=== PATIENT | female | born 2000 ===

== ENCOUNTER 2021-07-28 10:44 | Inpatient (IN) | payer OTHER ==
[2021-07-28] MEDS ORDERED: LIDOCAINE (2%) 20 MG/1 ML VIAL 20 ML MDV INFILTRATI ONE (11:13)
[2021-07-28] MEDS ORDERED: miSOPROStol 200 MCG TAB PR PRN (11:13)
[2021-07-28] MEDS ORDERED: ACETAMINOPHEN 325 MG TAB PO PRN (11:13)
[2021-07-28] MEDS ORDERED: AMPICILLIN/NS 2 GM/100 ML 2 GM/100 ML BAG IV ONE (11:13)
[2021-07-28] MEDS ORDERED: OXYTOCIN 10 UNIT/1 ML INJ IM PRN (11:13)
[2021-07-28] MEDS ORDERED: BUTORPHANOL 2 MG/1 ML INJ IV PRN (11:13)
[2021-07-28] MEDS ORDERED: LOPERAMIDE 2 MG CAP PO PRN (11:13)
[2021-07-28] MEDS ORDERED: fentaNYL 100 MCG/2 ML INJ IV PRN (11:13)
[2021-07-28] MEDS ORDERED: CARBOPROST TROMETHAMINE 250 MCG/1 ML INJ IM PRN (11:13)
[2021-07-28] MEDS ORDERED: MINERAL OIL 30 ML ORAL LIQD PO PRN (11:13)
[2021-07-28] MEDS ORDERED: METHYLERGONOVINE MALEATE 0.2 MG/ML VIAL IM PRN (11:13)
[2021-07-28] MEDS ORDERED: TERBUTALINE 1 MG/1 ML INJ SUB-Q PRN (11:13)
[2021-07-28] MEDS ORDERED: ePHEDrine SULFATE 50 MG/1 ML INJ IV PRN (11:13)
[2021-07-28] MEDS ORDERED: LACTATED RINGERS 1,000 ML IV SCH (11:15)
[2021-07-28 11:54] LABS: Hematocrit 36.3 % (30.3-42.9); Hemoglobin 11.9 gm/dl (10.1-14.3); Mean Corpuscular HGB Conc 33 % (30-34); Mean Corpuscular Volume 85 fl (79-97); Platelet Count 187 K/mm3 (140-440)
[2021-07-28] MEDS ORDERED: OXYTOCIN DRIP 30 UNITS/500 ML BAG IV SCH (12:00)
[2021-07-28] MEDS ORDERED: WITCH HAZEL/ GLYCERIN PAD TP PRN (13:00)
[2021-07-28] MEDS ORDERED: BENZOCAINE/MENTHOL 20/0.5% TOP SPRAY 56 GM TP PRN (13:00)
[2021-07-28] MEDS ORDERED: LANOLIN/ZINC/DIMETHICONE (LANSINOH) 7 GM TP PRN ×2 (13:00)
[2021-07-28] MEDS ORDERED: HYDROcodone/ACETAMINOPHEN 5-325 MG TAB PO PRN (13:00)
--- NOTE | 2021-07-28 13:06 | History and Physical Report ---
History of Present Illness Date of examination: 07/28/21 Date of admission: 07/28/21 11:24 Chief complaint: Contractions. History of present illness: 21 year old presents to L&D with contractions and precipitous delivery. Patient received care at [facility]. records are available. LMP 10/07/20. EDC 07/25/21 (based on 12 week US and confirmed by 19 week US). significant for the following: GBS bacteriuria, overweight labs are as follows: O+, RPR nonreactive, HIV negative, 1 hour sugar test 118, gonorrhea negative, chlamydia negative. Remainder of labs are not available. Rubella and hepatitis B surface antigen and hepatitis C antibody ordered. 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 denies: smoking, alcohol abuse, prescription drug abuse, IV drug use - Obstetrical History Expected Date of Delivery: 07/25/21 Actual Gestation: 40 Week(s) 3 Day(s) : 2 Para: 1 Hx # Term Pregnancies: 1 Number of Pregnancies: 0 Spontaneous Abortions: 0 Induced : 0 Number of Living Children: 1 Medications and Allergies Allergies Allergy/AdvReac Type Severity Reaction Status Date / Time No Known Allergies Allergy Verified 07/28/21 11:21 Active Meds: Active Medications Hydrocodone Bitart/Acetaminophen (Hydrocodone/Acetaminophen 5-325 Mg Tab) 2 each PO Q6H PRN PRN Reason: Pain, Moderate (4-6) Benzocaine/Menthol (Benzocaine/Menthol 20/0.5% Top [place] 56 Gm) 1 spray TP PRN PRN PRN Reason: Episiotomy Pain Carboprost Tromethamine (Carboprost Tromethamine 250 Mcg/1 Ml Inj) 250 mcg IM ONCE PRN PRN Reason: Uterine Bleeding Docusate Sodium (Docusate Sodium 100 Mg Cap) 100 mg PO BID HAJA Ephedrine Sulfate (Ephedrine Sulfate 50 Mg/1 Ml Inj) 10 mg IV Q2M PRN PRN Reason: Hypotension Ferrous Sulfate (Ferrous Sulfate 325 Mg Tab) 325 mg PO BID HAJA Oxytocin/Sodium Chloride (Pitocin/Ns 30 Unit/500ml) 30 units in 500 mls @ 40 mls/hr IV TITR HAJA; Protocol Last Admin: 07/28/21 12:05 Dose: 165 mls/hr, 165 mls/hr Documented by: Ibuprofen (Ibuprofen 600 Mg Tab) 600 mg PO Q6H HAJA Loperamide HCl (Loperamide 2 Mg Cap) 2 mg PO ONCE PRN PRN Reason: give with Hemabate Magnesium Hydroxide (Magnesium Hydroxide (Mom) Oral Liqd Udc) 30 ml PO HS PRN PRN Reason: Constipation Methylergonovine Maleate (Methylergonovine Maleate 0.2 Mg/Ml Vial) 0.2 mg IM ONCE PRN PRN Reason: Uterine Bleeding Multi-Ingredient Ointment (Lanolin/Zinc/Dimethicone (Lansinoh) 7 Gm) 1 applic TP PRN PRN PRN Reason: dryness/cracking Oxytocin (Oxytocin 10 Unit/1 Ml Inj) 10 unit IM ONCE PRN PRN Reason: Uterine Bleeding Sodium Chloride (Sodium Chloride 0.9% 10 Ml Flush Syringe) 10 ml IV PRN NR Stop: 08/10/21 12:59 [place]/Glycerin (W[place]/ Glycerin Pad) 1 each TP PRN PRN PRN Reason: Hemorrhoid/cleansing/soothing Review of Systems All systems: negative (contractions) - Vital Signs Vital signs: Vital Signs Pulse BP Pulse Ox 96 H 141/78 99 07/28/21 11:06 07/28/21 11:06 07/28/21 11:06 Temp Pulse Resp BP Pulse Ox 81 115/58 99 07/28/21 13:01 07/28/21 13:01 07/28/21 11:45 - Physical Exam Abdomen: Positive: normal appearance, soft. Negative: distention, tenderness, guarding, rigidity Genitourinary (Female): Positive: normal external genitalia, normal perenium. Negative: perineal/vulvar lesions (no lesions noted on careful exam) Vagina: Positive: normal moisture Uterus: Positive: enlarged. Negative: tender Anus/Rectum: Positive: normal perianal skin Extremities: Positive: normal - Obstetrical FHR: category 2 Uterine Contraction Monitor Mode: External Cervical Dilatation: 8 Cervical Effacement Percentage: 100 station: -1 Uterine Contraction Pattern: Regular Uterine Contraction Intensity: Strong/Firm Results Result Diagrams: 07/28/21 11:30 07/28/21 11:30 Abnormal lab results 07/28/21 Range/Units 11:30 WBC 13.1 H (4.5-11.0) K/mm3 RDW 16.0 H (13.2-15.2) % All other labs normal. Assessment and Plan A: at 40 weeks, 3 days gestation. Active labor. GBS positive. P: Admit. GBS prophylaxis. EFM. Anticipate vaginal .
--- NOTE | 2021-07-28 13:07 | Procedure Note ---
OB Delivery Note - Delivery Date of Delivery: 07/28/21 Surgeon: SHANTE BESS Estimated blood loss: other (350 cc) - Vaginal Delivery presentation: vertex Delivery position: OA Intrapartum events: precipitous labor- <3hr Delivery induction: none Delivery monitor: external FHT, external uterine Delivery placenta: spontaneous Delivery cord: 3 umbilical vessels Episiotomy: none Delivery laceration: none Anesthesia: none Delivery comments: Spontaneous vaginal delivery at 12:01 of liveborn female infant weighing 9 lb. 4 oz. over intact perineum with apgars of 8/9. Precipitous delivery. Short cord. was atraumatic. Baby was placed on mom's chest immediately after delivery. Spontaneous cry and respirations. Baby dried with warm blankets and bulb suctioned. 3 vessel cord double clamped and cut and baby taken to radiant warmer for further suctioning. Spontaneous delivery of intact placenta and membranes at 12:06. Pitocin to IV fluids after delivery of placenta. EBL 350 cc. Uterine atony noted so Cytotec 800 micrograms given rectally. Fundus firm and midline at 2 FB below umbilicus. No lacerations noted. Vaginal sweep negative. Sponge count correct. Mother and baby stable in birthing room.
[2021-07-28 13:27] LABS: Alanine Aminotransferase 11 units/L (7-56); Albumin 3.8 g/dL (3.9-5); Blood Urea Nitrogen 8 mg/dL (7-17); Calcium 8.5 mg/dL (8.4-10.2); Hemolysis Index 3
[2021-07-28 13:29] LABS: BUN/Creatinine Ratio 20; Uric Acid 3.7 mg/dL (3.5-7.6)
[2021-07-28] MEDS ORDERED: AMPICILLIN/NS 1 GM/50 ML 1 GM/50 ML BAG IV SCH (16:00)
[2021-07-28] MEDS ORDERED: MAGNESIUM HYDROXIDE (MOM) ORAL LIQD UDC PO PRN (22:00)
[2021-07-28] MEDS: DOCUSATE SODIUM 100 MG CAP PO SCH (22:45)
[2021-07-28] MEDS: FERROUS SULFATE 325 MG TAB PO SCH (22:45)
[2021-07-28] MEDS: IBUPROFEN 600 MG TAB PO SCH (22:45)
[2021-07-29 01:28] LABS: Hematocrit 31.5 % (30.3-42.9); Hemoglobin 10.2 gm/dl (10.1-14.3)
[2021-07-29] MEDS: IBUPROFEN 600 MG TAB PO SCH ×2 (04:45→22:08)
--- NOTE | 2021-07-29 10:27 | Progress Note ---
Subjective - Subjective Date of service: 07/29/21 Interval history: PPD#1 doing well firm fundus, lochia mild continue routine PP care d/c to home tomorrow Mishel Benitez MD Patient reports: appetite normal, voiding normally, pain well controlled, ambulating normally [place]hen[place]: doing well Objective - Vital Signs Latest vital signs: Vital Signs Temp Pulse Resp BP BP Pulse Ox Pulse Ox 07/29/21 08:05 98.2 F 76 18 109/61 98 07/29/21 00:01 98.5 F 73 20 111/76 96 07/28/21 22:45 16 07/28/21 20:00 97 07/28/21 16:31 97.2 F L 78 16 116/63 97 07/28/21 16:22 99 07/28/21 14:10 98.1 F 68 20 121/69 99 07/28/21 13:31 82 112/69 07/28/21 13:16 70 119/66 07/28/21 13:01 81 115/58 07/28/21 11:45 99 07/28/21 11:06 94 H 141/78 99 Intake and Output 07/28/21 07/29/21 07/29/21 23:59 07:59 15:59 Intake Total 240 120 Balance 240 120 Intake: Oral 240 120 Other: Total, Intake Amount 240 120 # Voids Void 1 1 1 - Labs Labs: Abnormal lab results 07/28/21 07/28/21 07/28/21 Range/Units 11:30 11:30 11:30 WBC 13.1 H (4.5-11.0) K/mm3 RDW 16.0 H (13.2-15.2) % Sodium 134 L (137-145) mmol/L Carbon Dioxide 16 L (22-30) mmol/L Creatinine 0.4 L (0.6-1.2) mg/dL Glucose 101 H (65-100) mg/dL Lactate Dehydrogenase 210 H (91-180) units/L Albumin 3.8 L (3.9-5) g/dL
--- NOTE | 2021-07-29 10:28 | Discharge Summary ---
Providers - Providers Date of Admission: 07/28/21 11:24 Date of discharge: 07/30/21 Attending physician: TRAM NICKERSON MD Primary care physician: TRAM NICKERSON MD Hospitalization Delivery: Episiotomy: none Other procedures: none complications: none Discharge diagnosis: IUP at term delivered Condition at discharge: Stable Disposition: 01 HOME / SELF CARE / HOMELESS Plan - Provider Discharge Summary Activity: no sex for 6 weeks Diet: routine Instructions: routine Additional instructions: [] Smoking cessation referral if applicable(refer to patient education folder for contact #) [] Refer to [facility]'s [facility] Booklet Call your doctor immediately for: * Fever > 100.5 * Heavy vaginal bleeding ( >1 pad per hour) * Severe persistent headache * Shortness of breath * Reddened, hot, painful area to leg or breast * Drainage or odor from incision. * Keep incision clean and dry at all times and follow doctor's instructions regarding bathing/showering - Follow up plan Follow up: TRAM NICKERSON MD [Primary Care Provider] - 6 Weeks
[2021-07-29] MEDS: FERROUS SULFATE 325 MG TAB PO SCH ×2 (16:19→22:08)
[2021-07-29] MEDS: DOCUSATE SODIUM 100 MG CAP PO SCH ×2 (16:19→22:08)
[2021-07-30] MEDS: IBUPROFEN 600 MG TAB PO SCH (06:15)
[2021-07-30 14:21] VITALS: BP 110/72
== END 2021-07-30 14:30 | disposition home or self-care (01) | DRG 807 ==
LOC: TRG 10:44 → APU 10:45 → TRG 11:13 → LD 11:24 → OB 14:27
PROVIDERS: ADMIT Obstetrics & Gynecology; ATTEND Obstetrics & Gynecology
PROC: 10E0XZZ Delivery of Products of Conception, External Approach (ICD-10-PCS; principal; 2021-07-28)
DX: O62.3 Precipitate labor (principal); Z37.0 Single live birth; O99.824 Streptococcus B carrier state complicating childbirth; Z3A.40 40 weeks gestation of pregnancy
CPT/HCPCS: 36415; 59025; 80053; 83615; 84550; 85014; 85018; 85027; 86592; 86706; 86762; 86803; 86850; 86900; 86901; G0378; J0290; J2590